=== PATIENT | male | born 1960 | race Caucasian/White ===

== ENCOUNTER 2017-10-29 19:39 | Emergency (ER) | payer BC ==
[~2017-10-29] VITALS: Ht 180.3 cm; Wt 111.9 kg
[2017-10-29 20:21] LABS: HEMATOCRIT 39.4 % (38.0-50.0); HEMOGLOBIN 14.2 G/DL (12.5-16.6); MCH 33.1 PG (29.0-34.0); MCV 91.8 FL (86-99); PLATELET COUNT 205 K/uL (156-360); RBC DIS.WIDTH-CV 12.5 % (11.8-14.6); RBC DIS.WIDTH-SD 41.5 % (39-53); RED BLOOD COUNT 4.29 M/uL (4.00-5.50); WHITE BLOOD COUNT 12.5 K/uL (4.1-10.2)
[2017-10-29 20:30] LABS: ALBUMIN 4.1 g/dL (3.2-4.8); CHLORIDE 104 mEq/L (99-109); POTASSIUM 3.2 mEq/L (3.7-5.4); SODIUM 135 mEq/L (136-147)
[2017-10-29 20:33] LABS: GLUCOSE 114 mg/dL (70-99)
[2017-10-29 20:35] LABS: TOTAL BILIRUBIN 2.7 mg/dL (0.0-1.0)
[2017-10-29 20:36] LABS: ALKALINE PHOSPHATASE 78 IU/L (3-129); CREATININE 1.1 mg/dL (0.6-1.3); GFR ESTIMATE (CALCULATED) > 59 mL/min/ (58.99-99999)
[2017-10-29 20:37] LABS: UREA NITROGEN (BUN) 11 mg/dL (9-23)
[2017-10-29 20:38] LABS: AST (GOT) 22 IU/L (2-34)
[2017-10-29 20:39] LABS: ALT (GPT) 35 IU/L (3-49)
[2017-10-29 20:40] LABS: LIPASE 9 U/L (1.0-51.0)
[2017-10-29 21:36] LABS: APPEARANCE SL.HAZY ((CLEAR)); BILIRUBIN NEGATIVE; BLOOD MODERATE; COLOR YELLOW ((YELLOW)); GLUCOSE (STRIP) NEGATIVE; KETONES 5; LEUKOCYTES LARGE; NITRITE NEGATIVE; PROTEIN (STRIP) 30; SPECIFIC GRAVITY 1.011 (1.000-1.030)
[2017-10-29] MEDS ORDERED: BACTRIM,SEPT1 TABLET PO (21:47)
[2017-10-29 21:54] LABS: BACTERIA RARE /HPF; EPITHELIAL CELLS NONE SEEN /HPF; MUCUS NONE SEEN /LPF; RED BLOOD CELLS 0-5 /HPF (0-5); UCUL ADDED? YES; WHITE BLOOD CELLS TNTC /HPF (0-5)
[2017-10-29 22:21] VITALS: BP 123/78
== END 2017-10-29 22:22 | disposition home or self-care (01) ==
LOC: EME 19:39
PROVIDERS: Physician Assistant
DX: N39.0 Urinary tract infection, site not specified (principal); E78.5 Hyperlipidemia, unspecified; K21.9 Gastro-esophageal reflux disease without esophagitis; Z87.891 Personal history of nicotine dependence
CPT/HCPCS: 74022; 80053; 81003; 83605; 83690; 85027; 87040; 87077; 87086; 87186; 99281; 99285; J0696; J7030